=== PATIENT | female | born 1950 | race Caucasian/White ===

== ENCOUNTER 2017-07-29 21:16 | Emergency (ER) | payer MEDICARE ==
[~2017-07-29] VITALS: Ht 172.7 cm; Wt 63.5 kg
[~2017-07-29 21:16] MED LIST: ASPIRIN81 M1 PO; GLIMEPIRIDE4 MG PO; LANTUS100 U/ML SC; LEVOXYL0.125 MG PO; LISINOPRIL20 MG PO; METFORMIN HCL1000 MG PO; METOPROLOL SR25 MG PO; NIFEDIPINE ER60 MG PO; NITRO TRANS0.2 MG/HR TD; SIMVASTATIN40 MG PO; TRIAM/HCTZ
== END 2017-07-30 00:22 | disposition home or self-care (01) ==
LOC: ED 21:16
DX: G43.909 Migraine, unspecified, not intractable, without status migrainosus (principal); Z88.8 Allergy status to other drugs, medicaments and biological substances; Z79.899 Other long term (current) drug therapy; Z79.82 Long term (current) use of aspirin; Z79.84 Long term (current) use of oral hypoglycemic drugs; Z79.4 Long term (current) use of insulin

== ENCOUNTER 2017-12-11 19:04 | Emergency (ER) | payer MEDICARE ==
[~2017-12-11] VITALS: Ht 172.7 cm; Wt 111.1 kg
[2017-12-11 19:23] LABS: BASO # 0.1 10*3/uL (0.0-0.1); BASO % 0.6 % (0.0-1.0); EOS # 0.4 10*3/uL (0.0-0.4); EOS % 4.7 % (1.0-4.0); HEMATOCRIT 38.2 % (37.0-47.0); HEMOGLOBIN 13.3 g/dl (12.0-16.0); LYMPH # 2.3 10*3/uL (1.3-4.4); LYMPH % 26.5 % (27.0-41.0); MEAN CELL VOLUME 91.2 fl (81.0-99.0); MEAN CORPUSCULAR HGB 31.7 pg (27.0-31.0); MEAN CORPUSCULAR HGB CONC 34.8 g/dl (33.0-37.0); MEAN PLATELET VOLUME 10.5 fl (9.6-12.3); MONO # 0.7 10*3/uL (0.1-1.0); MONO % 8.5 % (3.0-9.0); NEUT # 5.2 10*3/uL (2.3-7.9); NEUT % 59.4 % (47.0-73.0); PLATELET COUNT AUTOMATED 188 10*3/uL (130-400); RED BLOOD COUNT 4.19 10*6/uL (4.10-5.10); RED CELL DISTRI WIDTH 12.5 % (0-14.5); WHITE BLOOD COUNT 8.7 10*3/uL (4.8-10.8)
[2017-12-11 19:31] LABS: ACT PARTIAL THROMBO TIME 21.7 SECONDS (20.8-31.5)
[2017-12-11 19:39] LABS: ALBUMIN 3.5 gm/dl (3.1-4.5); CREATININE 1.33 mg/dL (0.55-1.02); TOTAL PROTEIN 7.2 gm/dL (6.4-8.2)
[2017-12-11 19:52] LABS: TROPONIN I 0.097 ng/ml (<0.045)
== END 2017-12-11 21:32 | disposition expired ==
LOC: ED 19:04
PROVIDERS: Emergency Medicine
DX: I46.9 Cardiac arrest, cause unspecified (principal); Z88.8 Allergy status to other drugs, medicaments and biological substances; Z79.4 Long term (current) use of insulin; Z79.84 Long term (current) use of oral hypoglycemic drugs; Z79.82 Long term (current) use of aspirin